=== PATIENT | female | born 1950 | race African-American/Black ===

== ENCOUNTER 2017-08-17 02:35 | Inpatient (IN) | payer OTHER ==
[~2017-08-17] VITALS: Ht 172.7 cm; Wt 73.7 kg
[~2017-08-17 02:35] MED LIST: DRAMAMINE50 M2 PO; FOLIC ACID1 M1 PO; MULTI FOR HER1 EAC2 PO; NEXIUM40 M1 PO; RESTASIS1 EACH OU; RHINOCORT ALL8.43 ML NASB; TREXALL5 MG PO; VASOTEC2.5 M1 PO; ZYRTEC10 M3 PO
[2017-08-17] MEDS ORDERED: DIMENHYDRINATE PO (06:44)
--- NOTE | 2017-08-17 09:56 | Operative Report ---
Operative/Inv Procedure Report Surgery Date: 08/17/17 Name of Procedure: Anterior cervical discectomy and fusion C4 5 with interdiscal cage and autologous bone graft and anterior plate fixation. Iliac crest tricortical structural bone graft harvest left crest. Reconstruction of donor site with Master graft. Use of fluoroscopy. Pre-Operative Diagnosis: Cervical disc C4 5 Post-Operative Diagnosis: Herniated cervical disc C4 5 and severe osteoporosis Estimated Blood Loss: less than 50ml Surgeon/Lead Machinist: Gary TESFAYE,Todd Carty M.D. Anesthesia: general endotracheal tube Operative/Procedure Note Note: After adequate general anesthesia was achieved the patient was placed in the supine position with the head turned left and the shoulders taped to the side. The right side of the neck and left anterior iliac crest were sterilely prepped and draped and incision was made on the right side of the neck carried sharply through the platysma. A blunt dissection was carried medial to the neurovascular bundle lateral to the visceral structures the esophagus was identified as was the trachea a bent needle was placed into the disc space fluoroscopy was used to identify surgical level. The deep retractors were gently deployed. A sharp annulotomy was created in the C4 5 disc space and discectomy was performed with the disc rongeurs and Kerrison. The dissection was carried through the annulus and posterior longitudinal ligament and a large fragment of herniated disc was present in the foramen and just medial to the foramen on the right side consistent with the patient's clinical symptoms. An incision was made over the left anterior iliac crest and a subperiosteal dissection was carried medial and lateral to the crest. Just E saw was used to collect a tricortical graft and the bone was found to be severely osteoporotic. Wound was irrigated packed with Master graft covered with Gelfoam and closed in layers with absorbable suture with nylon in the skin. The endplates were debrided with the high-speed bur to bleeding subchondral bone at the inferior aspect of C4 and the superior aspect of C5. The trial was used and an 18 mm cage was selected and packed with bone graft. Cages tamped into position under fluoroscopic guidance. An anterior plate was then applied 12 mm screws were found to be poor fixation and 14 mm screws were selected. The construct was checked in AP and lateral plane. The screws were locked 4. There is significant risk for loosening of hardware and a posterior procedure will be discussed with the patient. Findings: Severe osteoporosis
--- NOTE | 2017-08-17 10:49 | Patient Discharge Instructions ---
Acute Coronary Syndrome Inclusion Criteria At DC or during hospital stay patient has or had the following: ACS DIAGNOSIS No Discharge Core Measures Meds if any: Prescribed or Continued at Discharge Meds if any: NOT Prescribed or Continued at Discharge Congestive Heart Failure Inclusion Criteria At DC or during hospital stay patient has or had the following: CHF DIAGNOSIS No Discharge Core Measures Meds if any: Prescribed or Continued at Discharge Meds if any: NOT Prescribed or Continued at Discharge Cerebrovascular accident Inclusion Criteria At DC or during hospital stay patient has or had the following: CVA/TIA Diagnosis No Discharge Core Measures Meds if any: Prescribed or Continued at Discharge Meds if any: NOT Prescribed or Continued at Discharge Venous thromboembolism Inclusion Criteria VTE Diagnosis No VTE Type NONE VTE Confirmed by (Test) NONE Discharge Core Measures - Per Current guidelines, there needs to be overlap - treatment for the first 5 days of Warfarin therapy. - If discharged on Warfarin prior to 5 days of - overlap therapy, the patient will need to be - assessed for post discharge needs including - *Post discharge parental anticoagulation - *Warfarin and/or parental anticoagulation education - *Follow up date to check INR post discharge At least 5 days overlap therapy as Inpatient No Meds if any: Prescribed or Continued at Discharge Note: Overlap Therapy is Warfarin and Anticoagulant Meds if any: NOT Prescribed or Continued at Discharge
[2017-08-17] MEDS ORDERED: TYLENOL EXTRA500 M2 PO (10:54)
[2017-08-17] MEDS ORDERED: HYDROMORPHONE HC2 M1 PO (10:54)
[2017-08-17] MEDS ORDERED: VITAMIN D31000 UNI2 PO (10:54)
[2017-08-17] MEDS ORDERED: MULTIVITAMINS1 EAC9 PO (10:54)
[2017-08-17] MEDS ORDERED: MILK OF MA400 MG/52 PO (10:54)
[2017-08-17] MEDS ORDERED: OS-CAL 500+D31 EAC1 PO (10:54)
[2017-08-17] MEDS ORDERED: DULCOLAX10 M1 RC (10:54)
[2017-08-17] MEDS ORDERED: COLACE100 M1 PO (10:54)
--- NOTE | 2017-08-17 10:57 | RADIOLOGY REPORT ---
EXAMINATION: CR ABDOMEN/INTRAOPERATIVE FLUOROSCOPY CLINICAL INDICATION: ACD with C4-C5 fusion in OR. COMPARISON: MRI of the cervical spine dated 08/15/2017. TECHNIQUE/FINDINGS: Fluoroscopic equipment was dedicated to the operating room for the performance of an intraoperative procedure. Several (5) spot films were acquired and are archived in PACS. Please refer to operative notes for procedural detail. FLUOROSCOPY TIME: 0.3 minutes. IMPRESSION: Administrative dictation for intraoperative fluoroscopy and image archiving in PACS. Please refer to operative notes for details.
--- NOTE | 2017-08-17 11:01 | Cons- Medical ---
Jere Louise 08/17/17 1100: General Information and HPI Consulting Request Date of Consult: 08/17/17 Requested By: Todd Vega MD Reason for Consult: CO-Management of HTN Source of Information: patient, old records Exam Limitations: no limitations History of Present Illness: is a 67 yo lady with PMHx. of HTN, prediabetes, RA (On Methotrexate), GERD, former smoker who quit about 30 years ago, came in for elective cervical fusion surgery. Patient has the procedure today, after the procedure she was noted to be hypertensive so, medical team was consulted for management of HTN. Patient was seen at PACU, she denies any focal symptoms, she denies any pain, no chest pain, SOB, headache, SOB, fever, chills, abdominal pain. She was given 1 dose of hydralazine at OR, however at PACU her blood pressure was very well-controlled the highest was 146/65 mmHg, she didn't receive any blood pressure medication at PACU. Allergies/Medications Allergies: Coded Allergies: NSAIDS (Non-Steroidal Anti-Inflamma (swelling and rash 01/05/16) Penicillins (swelling and rash 01/05/16) aspirin (swelling and rash 01/05/16) codeine (SWELLING and rash 01/05/16) iodine (swelling 01/05/16) meperidine (From DEMEROL) (swelling and rash 01/05/16) Home Med List: Acetaminophen (Tylenol Extra Strength) 500 MG TABLET 1 TAB PO TID PRN TEMP>101 Bisacodyl (Dulcolax) 10 MG SUPP.RECT 1 SUP RC DAILY PRN CONSTIPATION Budesonide (Rhinocort Allergy) 8.43 ML SPRAY.PUMP 2 SPRAY NASB DAILY ALLERGIES (Reported) Calcium Carbonate/Vitamin D3 (Os-Pankaj 500+D3 Caplet) 500 MG-200 TABLET 1 TAB PO BID BONE HEALTH Cetirizine HCl (Zyrtec) 10 MG TABLET 1 TAB PO DAILY ALLERGIES (Reported) Cholecalciferol (Vitamin D3) 1,000 UNIT TABLET 1 TAB PO DAILY BONE HEALTH Cyclosporine (Restasis) 0.05 % DROPERETTE 1 GTT OU DAILY BOTH EYES (Reported) Dimenhydrinate (Dramamine) 50 MG TABLET 100 MG PO DAILY PRN dizziness ( Reported) Docusate Sodium (Colace) 100 MG CAPSULE 1 CAP PO BID PRN CONSTIPATION Enalapril Maleate (Vasotec) (Unknown Strength) TABLET 5 MG PO DAILY BP ( Reported) Esomeprazole (Nexium) 40 MG CAPSULE.DR 1 CAP PO DAILY GERD (Reported) Folic Acid 1 MG TABLET 1 TAB PO QSUN SUPPLEMENT (Reported) [GRAVOL] 100 PO NEEDED MOTION SICKNESS (Reported) Hydromorphone HCl 2 MG TABLET 1 MG PO Q3P PRN PAIN SCALE 1-3 (MILD) 1-2 TABS PO Q 4-6 HRS PRN PAIN Magnesium Hydroxide (Milk Of Magnesia) 400 MG/5 ML ORAL.SUSP 5 ML PO Q8P PRN CONSTIPATION Methotrexate Sodium (Trexall) 5 MG TABLET 20 MG PO QSAT ARTHRITIS (Reported) Multiple Vitamin (Multivitamins) 1 EACH TABLET 1 TAB PO DAILY GENERAL HEALTH Mv,Ca,Min/Iron Fum/FA/Vit K (Multi For Her Tablet) 18 MG IRON-600 MCG-80 MCG TABLET 1 TAB PO DAILY SUPPLEMENT (Reported) Review of Systems Review of Systems Constitutional: Reports: no symptoms. EENTM: Reports: no symptoms. Cardiovascular: Reports: no symptoms. Respiratory: Reports: no symptoms. GI: Reports: no symptoms. Genitourinary: Reports: no symptoms. Musculoskeletal: Reports: see HPI. Skin: Reports: no symptoms. Neurological/Psychological: Reports: no symptoms. Hematologic/Endocrine: Reports: no symptoms. All Other Systems: Reviewed and Negative Past History Medical History Neurological: dizziness EENT: allergies, rhinitis, sinusitis Cardiovascular: hypertension Respiratory: NONE Gastrointestinal: GERD Hepatic: NONE Renal: NONE Musculoskeletal: chronic back pain, disk herniation, degen joint disease, osteoarthritis, rheumatoid arthritis, sciatica, spinal stenosis, Lumbar disc herniation Psychiatric: NONE Endocrine: NONE Blood Disorders: NONE Cancer(s): NONE OFFICE ASSISTANT RECEPTIONIST/Reproductive: NONE Other Medical Hx: Nausea with General Anesthesia Surgical History Surgical History: s/p left shoulder arthroscopy 2016-Dr. Adan s/p right shoulder arthroscopy 2017- Dr. Dhaliwal Family History Relations & Conditions If Any: MOTHER (Diabetes MellitusCADRheumatic fever as a child). , Age 72; Cause : ASCVD (arteriosclerotic cardiovascular disease). FATHER (Diabetes MellitusCAD). , Age 71; Cause: ASCVD (arteriosclerotic cardiovascular disease). SISTER, , Age 76; Cause: Breast cancer. SISTER, ; Cause: Myocardial infarction. SISTER, ; Cause: Dementia. Psychosocial History Primary Language: [place]se Exam & Diagnostic Data Last 24 Hrs of Vital Signs/I&O Not documented Physical Exam General Appearance: well developed/nourished, no apparent distress, alert, awake , comfortable Head: atraumatic, normal appearance Respiratory: normal breath sounds, chest non-tender, no respiratory distress Cardiovascular: regular rate/rhythm, normal peripheral pulses Gastrointestinal: normal bowel sounds, soft, non-tender Extremities: normal inspection, no edema Neurologic/Psych: awake, alert, oriented x 3 Last 24 Hrs of Labs/Glen: No labs Assessment/Plan Assessment/Plan is a 67 yo lady with PMHx. of HTN, prediabetes, RA (On Methotrexate), GERD, former smoker who quit about 30 years ago, came in for elective cervical fusion surgery. Patient has the procedure today, after the procedure she was noted to be hypertensive so, medical team was consulted for management of HTN. Assessment: #Status post Anterior cervical discectomy and fusion C4 5 with interdiscal cage and autologous bone graft and anterior plate fixation. #History of hypertension #History of rheumatoid arthritis #History of prediabetes Plan: * Continue monitor her blood pressure with vitals every shift * Continue her home medication including her blood pressure medication (Except methotrexate) * Accu-Chek 3 times a day before meals and at bedtime * Check her labs tomorrow (CBC/BEP) * We'll continue to follow Problem List: 1. Rheumatoid arthritis 2. GERD (gastroesophageal reflux disease) 3. Status post laminectomy with spinal fusion Copies To: Neil Renae MD Consult Acknowledgment - Thank you for your consult request. Neil Renae MD 08/17/17 3977: Assessment/Plan Consult Acknowledgment - Thank you for your consult request. Attending MD Review Statement Attending Statement Attending Statement: examined this patient, discuss w/resident/PA/TIMBER APPRAISER, agreed w/resident/PA/TIMBER APPRAISER, discussed with family, reviewed EMR data (avail), amended to note Attending Assessment/Plan: The patient is a 67 yo female from [facility] with h/o HTN, pre-diabetes, allergic rhinitis, RA (on MTX), and GERD who presented for elective cervical fusion surgery today. We are called to evaluate post operatively. She had been noted to be hypertensive post op and was given Hydralazine x 1 dose in PACU with subsequent decrease in BP. She was drowsy at the time of my exam on the floor and appeared comfortable. No c/o dyspnea, chest pain, etc. Initially plan was to discharge tomorrow, however PA states that plan is to go back to OR on 08/19 for an additional procedure. Osteoporosis was found at the time of surgery. She did initially have some nausea and vomiting that resolved. Physical Exam: VS: T 98.5, P 68, BP 140/70, R 18, PO 96% HEENT: eyes- PERRLA, EOMI shruti- dry mucosa Neck: in soft collar Chest: diminished BS at bases, clear Cor: RRR nl S1, S2 w/o murm Abd: BS+, soft, NT, - HSM Ext: no edema Neuro: slightly drowsy, however arousable and answers questions, non-focal exam Impression/Plan: #S/P Anterior Cervical Discectomy with Fusion C4-5 (instrumental)- doing well post operatively w/o current symptoms. Drowsy due to pain meds, etc. Was informed by PA that due to finding of osteoporosis the patient will not be discharged tomorrow as planned, however will remain in hospital with additional procedure planned for 08/19. Plan: Post op care as per surgery/orthopedics. #Essential HTN- BP good at present. She is on Vasotec as OP (non-formulary) and equivalent dose of lisinopril will be prescribed. Plan: Will use Lisinopril and adjust dose as needed. #History of RA- on MTX (on hold). Plan: Continue to hold MTX. #GERD- on Nexium as OP. Plan: Substitute Omeprazole while in hospital. #Allergic Rhinitis- on Zyrtec and Budesonide Nasal [place] as OP. Plan: Substitute Claritin and Flonase while in hospital. #?Osteoporosis- mentioned by PA. Note patient is post menopausal female with RA. RA is independent risk factor for osteoporosis unrelated to steroid therapy. Plan: Would suggest OP DEXA/FRAX calculation and evaluation for osteoporosis treatment as OP. Continue Ca/Vit D.
[2017-08-17 12:42] VITALS: BP 144/70
--- NOTE | 2017-08-17 13:39 | PN- Neurosurgical ---
Subjective Subjective: pt in bed, sleepy, minimal pain at 1/10. Denies paresthesias. Had some Nausea and vomiting which has no subsided and pt is confortable. Voiding. No cp/sob/olson. Objective Vital Signs and I&Os Vital Signs Date Time Temp Pulse Resp B/P B/P Pulse O2 O2 Flow FiO2 Mean Ox Delivery Rate 08/17 1242 97.8 58 20 144/70 96 Room Air Intake & Output 08/17 1600 08/17 0800 08/17 0000 08/16 1600 08/16 0800 08/16 0000 Intake Total Output Total Balance Patient 150 lb 155 lb Weight Weight Reported by Patient Measurement Method Physical Exam: gen- NAD, soft collar in place resp- clear cardiac- RRR abd- soft, NT ext- 2+ radial pulse bilaterally, distal sensory and motor function intact bilaterally. calfs soft, nontender bilaterally Assessment/Plan Assessment/Plan 67yo F SP ACD fusion C4-5 with bone graft harvested from left iliac crest POD0. stable but had nausea and vomiting immidiately post-op anti-emetics as needed sheela-op abx- Clinda Pain mangement PT- soft c-spine collar DC IVF when tolerating PO, then reg diet dvt ppx- ALPS and early ambulation reg home meds except hold Methotrexate Core Measures Venous Thromboembolism VTE Risk Factors Surgery No Mechanical VTE Prophylaxis d/t N/A MechProphylax Ordered No VTE Pharm Prophylaxis d/t Surgical Contraindication
[2017-08-17 15:21] VITALS: BP 140/75
[2017-08-17 16:19] VITALS: BP 160/86
[2017-08-17 22:13] VITALS: BP 140/70
[2017-08-18 02:00] VITALS: BP 132/66
[2017-08-18 07:39] VITALS: BP 138/74
--- NOTE | 2017-08-18 08:25 | PN- Neurosurgical ---
Subjective Subjective: pt comfortable. mild pain in neck and pelvis at graft site. no ue/le neurologic symptoms. able to swallow ok, tolerating breakfast at time of my evaluation. Objective Vital Signs and I&Os Vital Signs Date Time Temp Pulse Resp B/P B/P Pulse O2 O2 Flow FiO2 Mean Ox Delivery Rate 08/18 0739 98.1 65 20 138/74 96 Room Air 08/18 0200 98.9 69 18 132/66 95 Room Air 08/17 2213 98.5 68 140/70 96 08/17 1825 Room Air Room Air 08/17 1619 62 160/86 08/17 1521 97.5 72 20 140/75 96 08/17 1418 97.8 58 20 144/70 08/17 1242 97.8 58 20 144/70 96 Room Air Intake & Output 08/18 1600 08/18 0800 08/18 0000 08/17 1600 08/17 0800 08/17 0000 Intake Total 1100 Output Total 250 1000 Balance -250 100 Intake, IV 800 Intake, Oral 300 Output, Urine 250 1000 Patient 162 lb 150 lb Weight Weight Reported by Patient Measurement Method Physical Exam: wdwn, aox3, nad, comfortable. Neck:soft collar in place, dressing cdi no resp distress BUE/LE NVI w sensation and motor grossly intact, no deficits noted. L ant/lateral pelvis graft site:dressing cdi. Assessment/Plan Assessment/Plan 67yo F POD1 SP ACD fusion C4-5 with bone graft harvested from left iliac crest sheela-op abx- Clinda Pain mangement soft c-spine collar reg diet dvt ppx- ALPS and early ambulation oob tentative plan for posterior approach tomorrow, npo p mn, will confirm w Dr Vega. Core Measures Venous Thromboembolism VTE Risk Factors Surgery No Mechanical VTE Prophylaxis d/t N/A MechProphylax Ordered No VTE Pharm Prophylaxis d/t Surgical Contraindication
--- NOTE | 2017-08-18 08:36 | PN- Medicine Consult ---
Assessment/PlanMedical Consult Assessment/Plan Assessment: is a 67 yo lady with PMHx. of HTN, prediabetes, RA (On Methotrexate), GERD, former smoker who quit about 30 years ago, came in for elective cervical fusion surgery. Patient had the procedure yesterday, after the procedure she was noted to be hypertensive so, medical team was consulted for management of HTN. Plan: is a 67 yo lady with PMHx. of HTN, prediabetes, RA (On Methotrexate), GERD, former smoker who quit about 30 years ago, came in for elective cervical fusion surgery. Patient has the procedure today, after the procedure she was noted to be hypertensive so, medical team was consulted for management of HTN. Assessment: #Status post Anterior cervical discectomy and fusion C4 5 with interdiscal cage and autologous bone graft and anterior plate fixation. #History of hypertension #History of rheumatoid arthritis #History of prediabetes Plan: * BP is well controlled on Lisinopril * Continue other home medication including her blood pressure medication (Except methotrexate) * Soft C-spine collar * PT * Accu-Chek 3 times a day before meals and at bedtime * Check her labs tomorrow (CBC/BEP) * We'll continue to follow * Order some Lozenges as she feels sore throat which could be related to intubation, consider rapid flu swap if symptoms persist Going to OR tomorrow for posterior approach, her RCRI is 0.4% , FRAX score for hip fracture is 4.9% (With PMD assume to be -2.5) Problem List: 1. Status post laminectomy with spinal fusion Subjective Subjective: Seen and examined, no complaint except for pain in the left lower quadrant related to the procedure No events overnight Vitals stable She is going to OR tomorrow Review of Systems Constitutional: Reports: no symptoms. EENTM: Reports: no symptoms. Cardiovascular: Reports: no symptoms. Respiratory: Reports: no symptoms. Gastrointestinal: Reports: no symptoms. Genitourinary: Reports: no symptoms. Musculoskeletal: Reports: no symptoms. Skin: Reports: no symptoms. Neurological/Psychological: Reports: no symptoms. Hematologic/Endocrine: Reports: no symptoms. Objective Last 24 Hrs of Vital Signs/I&O Vital Signs Date Time Temp Pulse Resp B/P B/P Pulse O2 O2 Flow FiO2 Mean Ox Delivery Rate 04/05 1022 98.1 65 20 138/74 04/ 0739 98.1 65 20 138/74 96 Room Air 08/18 0200 98.9 69 18 132/66 95 Room Air 08/17 2213 98.5 68 140/70 96 08/17 1825 Room Air Room Air 08/17 1619 62 160/86 08/17 1521 97.5 72 20 140/75 96 08/17 1418 97.8 58 20 144/70 08/17 1242 97.8 58 20 144/70 96 Room Air Intake & Output 08/18 1600 08/18 0800 08/18 0000 Intake Total 1100 Output Total 250 1000 Balance -250 100 Intake, IV 800 Intake, Oral 300 Output, Urine 250 1000 Patient 162 lb Weight Physical Exam General Appearance: well developed/nourished, no apparent distress, alert, awake , comfortable Head: atraumatic Neck: normal inspection, supple Cardiovascular: regular rate/rhythm, normal peripheral pulses Respiratory: normal breath sounds, chest non-tender, no respiratory distress Extremities: normal inspection, normal capillary refill, no edema Current Medications: Current Medications Sig/Ness Start time Last Medication Dose Route Stop Time Status Admin Acetaminophen 1,000 MG Q6P PRN 08/17 1045 AC 08/18 N/A 1 UNIT IV 0028 Acetaminophen 650 MG Q4P PRN 08/17 1045 AC PO Bisacodyl 10 MG DAILY NEEDED PRN 08/17 1045 AC NM Calcium 600 MG BID 08/17 2200 AC 08/18 PO 1022 Cholecalciferol 1,000 IU DAILY 08/18 1000 AC 08/18 PO 1022 Clindamycin 600 MG IQ8 08/17 1600 DC 08/18 Dextrose/Water 50 ML IV 08/18 0829 1021 Clindamycin 600 MG ONCE 08/17 0000 DC Dextrose/Water 50 ML IV 08/17 2359 Cyclosporine 1 GTT DAILY 08/18 1000 AC 08/18 OPH 1022 Docusate Sodium 100 MG BID 08/17 2200 AC 08/18 PO 1022 Fluticasone 2 SPRAY DAILY 08/18 1000 AC 08/18 Propionate HERBIE 1022 Folic Acid 1 MG QSUN 08/21 0700 AC PO Hydromorphone HCl 1 MG Q3P PRN 08/17 1045 AC PO Hydromorphone HCl 2 MG Q3P PRN 08/17 1045 AC PO Lactated Ringer's 1,000 ML Q10H 08/17 1045 DC 08/17 IV 2204 Lisinopril 10 MG DAILY 08/17 1033 AC 08/18 PO 1022 Loratadine 10 MG DAILY 08/18 1000 AC 08/18 PO 1022 Magnesium Hydroxide 30 ML Q8P PRN 08/17 1045 AC PO Meclizine HCl 12.5 MG ONCE PRN 08/17 1045 AC PO Multivitamins 1 TAB DAILY 08/18 1000 AC 08/18 PO 1022 Omeprazole 40 MG DAILY AC 08/18 0700 AC 08/18 PO 0629 Ondansetron HCl 4 MG Q6P PRN 08/17 1045 AC 08/17 IV 1240 Trimethobenzamide HCl 200 MG Q6P PRN 08/17 1045 AC 08/17 IM 1552 Results Last 24 Hrs Lab/Glen Results: No labs
[2017-08-18 14:36] VITALS: BP 130/70
--- NOTE | 2017-08-18 16:01 | PN- Orthopedic ---
Subjective Subjective: Patient feeling well. Minimal pain. No pain meds needed. Nausea subsided. Henri. po. +flatus. Voiding without difficulty. Ambulating in barraza without assist. Review of Systems: Remarkable for the above complaints. Objective Vital Signs and I&Os Vital Signs Date Time Temp Pulse Resp B/P B/P Pulse O2 O2 Flow FiO2 Mean Ox Delivery Rate 08/18 1436 98.1 74 18 130/70 97 Room Air 08/18 1022 98.1 65 20 138/74 08/18 0739 98.1 65 20 138/74 96 Room Air 08/18 0200 98.9 69 18 132/66 95 Room Air 08/17 2213 98.5 68 140/70 96 08/17 1825 Room Air Room Air 08/17 1619 62 160/86 Intake & Output 08/18 1600 08/18 0800 08/18 0000 08/17 1600 08/17 0800 08/17 0000 Intake Total 1100 Output Total 250 1000 Balance -250 100 Intake, IV 800 Intake, Oral 300 Output, Urine 250 1000 Patient 162 lb 150 lb Weight Weight Reported by Patient Measurement Method Physical Exam General Appearance: well developed/nourished, no apparent distress, alert, awake , comfortable Neck: Incisions C/D/I. Dressings changed., + min. swelling around incision. + ecchymosis Respiratory: normal breath sounds, no respiratory distress Cardiovascular: regular rate/rhythm Abdomen: normal bowel sounds, soft, non-tender Back: Graft site incision C/D/I. Dressing changed. Neurologic/Psychiatric: Neurovascularly intact with no new or worsening gross motor or sensory loss. Skin: intact, normal color, warm/dry Assessment/Plan Assessment/Plan Assessment: S/p ACDF C4-5 with severe osteoporosis Plan: Continue pain meds prn Ice prn pain. NPO after MN. Start IVF after Midnight Plan to go for PCDF in am. for stabilization. Will F/U in am Problem List: 1. Hypertension 2. Sinusitis 3. GERD (gastroesophageal reflux disease) 4. Rheumatoid arthritis 5. Rhinitis Core Measures Venous Thromboembolism VTE Risk Factors Surgery No Mechanical VTE Prophylaxis d/t Early Ambulation No VTE Pharm Prophylaxis d/t Surgical Contraindication Attending MD Review Statement Attending Statement Attending MD Statement: examined this patient, discuss w/resident/PA/BIOFUELS PLANT OPERATIONS ENGINEER, agreed w/resident/PA/BIOFUELS PLANT OPERATIONS ENGINEER
[2017-08-18 21:58] VITALS: BP 160/72
[2017-08-19 04:50] VITALS: BP 144/84
[2017-08-19 09:36] VITALS: BP 128/84
== END 2017-08-19 13:51 | DRG 473 ==
LOC: SDA 02:35 → ENRESERV 10:51 → ENTRNSPT 11:45 → EDTRNSPTSTS 12:09 → 2NA 12:20 → CMPTRNSPT 12:23 → ENPENDDIS 08-19 09:11 → ENTRNSPT 08-19 13:40 → EDTRNSPTSTS 08-19 13:47 → 2NA 08-19 13:51 → CMPTRNSPT 08-19 14:02
PROC: 0RG10A0 Fusion of Cervical Vertebral Joint with Interbody Fusion Device, Anterior Approach, Anterior Column, Open Approach (ICD-10-PCS; principal; 2017-08-17)
PROC: 0RT30ZZ Resection of Cervical Vertebral Disc, Open Approach (ICD-10-PCS; principal; 2017-08-17)
PROC: 0QB30ZZ Excision of Left Pelvic Bone, Open Approach (ICD-10-PCS; principal; 2017-08-17)
DX: M50.121 Cervical disc disorder at C4-C5 level with radiculopathy (principal); I10 Essential (primary) hypertension; R73.03 Prediabetes; M06.9 Rheumatoid arthritis, unspecified; K21.9 Gastro-esophageal reflux disease without esophagitis; Z87.891 Personal history of nicotine dependence; Z88.6 Allergy status to analgesic agent; Z88.5 Allergy status to narcotic agent; Z88.0 Allergy status to penicillin; M54.30 Sciatica, unspecified side; M51.26 Other intervertebral disc displacement, lumbar region; J30.9 Allergic rhinitis, unspecified; M81.0 Age-related osteoporosis without current pathological fracture
CPT/HCPCS: 2NASP; 36415; 72040; 88304; 97116-GO; 97161-GP; 97530-GO; J0131; J2270; J2405; J3250; J3490; J7120

== ENCOUNTER 2017-08-22 01:27 | Inpatient (IN) | payer OTHER ==
[~2017-08-22] VITALS: Ht 172.7 cm; Wt 69.4 kg
[~2017-08-22 01:27] MED LIST changes: +COLACE100 M1 PO; +DIMENHYDRINATE PO; +DULCOLAX10 M1 RC; +HYDROMORPHONE HC2 M1 PO; +MILK OF MA400 MG/52 PO; +MULTIVITAMINS1 EAC9 PO; +OS-CAL 500+D31 EAC1 PO; +TYLENOL EXTRA500 M2 PO; +VITAMIN D31000 UNI2 PO
--- NOTE | 2017-08-22 13:33 | Operative Report ---
Operative/Inv Procedure Report Surgery Date: 08/22/17 Name of Procedure: Posterior cervical inspection of fusion C4 5. Laminectomies decompression C4 5 bilaterally. Instrumented fusion with 18-gauge wire C4 5. Lateral mass fusion autologous iliac crest C4 5. Harvesting of iliac crest right posterior. Destruction of harvest site with Master graft. Placement of Draper tongs removal of Draper tongs. Use of fluoroscopy. Pre-Operative Diagnosis: Unstable spine osteoporosis. Post-Operative Diagnosis: Severe osteoporosis. Estimated Blood Loss: less than 50ml Surgeon/Automotive Airconditioning Mechanic: Gary TESFAYE,Todd ACUNA Anesthesia: general endotracheal tube Operative/Procedure Note Note: After adequate general anesthesia was achieved the patient was placed in Draper tongs and log rolled onto the operating table. She was placed in the prone position. The back of the neck and right posterior iliac crest were sterilely prepped and draped. In the log rolling and positioning maintaining neutral position of the cervical spine. An incision was made in the midline of the posterior cervical spine and carried down over the dorsal elements with electrocautery. The C5 vertebral was easily identified and the towel clip was placed in the spinous process of C4. Fluoroscopy was obtained to identify surgical level. After placement of the 18-gauge wire was attempted at C4 the spinous process demonstrated severe osteoporosis and a decision was made to perform a bone graft fusion. An incision was made over the right posterior iliac crest the dissection was carried to the level of the crest and the osteotome was used to create an entrance portal and the curettes were used to collect morcellized bone. The wound was irrigated the defect was packed with Master graft and closed in layers with double suture with darshan in the skin. The curettes and Kerrisons were used to perform laminectomies at C4 and C5 bilaterally as was the high-speed bur. The bone was extremely soft. After the decompression the wound was copiously irrigated the lateral masses were decorticated with the high-speed bur and the facets were decorticated with the pencil point bur. Bone wax was packed within the facet joints and over the dorsal elements laterally well away from the laminotomy sites. The wound was copiously irrigated a closure of the cervical fascia and subcutaneous tissue was performed with absorbable suture the skin was closed with darshan. After placement sterile dressings the patient was log rolled off the operating table in the Draper tongs were removed patient was in a cervical collar log roll.
--- NOTE | 2017-08-22 14:13 | Patient Discharge Instructions ---
Discharge Instructions General Discharge Information Special Instructions: Do not start methotrexate until 2 weeks post operatively. discussed with Beatriz Bates PA-C Acute Coronary Syndrome Inclusion Criteria At DC or during hospital stay patient has or had the following: ACS DIAGNOSIS No Discharge Core Measures Meds if any: Prescribed or Continued at Discharge Meds if any: NOT Prescribed or Continued at Discharge Congestive Heart Failure Inclusion Criteria At DC or during hospital stay patient has or had the following: CHF DIAGNOSIS No Discharge Core Measures Meds if any: Prescribed or Continued at Discharge Meds if any: NOT Prescribed or Continued at Discharge Cerebrovascular accident Inclusion Criteria At DC or during hospital stay patient has or had the following: CVA/TIA Diagnosis No Discharge Core Measures Meds if any: Prescribed or Continued at Discharge Meds if any: NOT Prescribed or Continued at Discharge Venous thromboembolism Inclusion Criteria VTE Diagnosis No VTE Type NONE VTE Confirmed by (Test) NONE Discharge Core Measures - Per Current guidelines, there needs to be overlap - treatment for the first 5 days of Warfarin therapy. - If discharged on Warfarin prior to 5 days of - overlap therapy, the patient will need to be - assessed for post discharge needs including - *Post discharge parental anticoagulation - *Warfarin and/or parental anticoagulation education - *Follow up date to check INR post discharge At least 5 days overlap therapy as Inpatient No Meds if any: Prescribed or Continued at Discharge Note: Overlap Therapy is Warfarin and Anticoagulant Meds if any: NOT Prescribed or Continued at Discharge
[2017-08-22] MEDS ORDERED: HYDROMORPHONE HC2 M1 PO (14:18)
[2017-08-22] MEDS ORDERED: TYLENOL EXTRA500 M2 PO (14:18)
--- NOTE | 2017-08-22 16:20 | PN- Orthopedic ---
Subjective Subjective: Postop check: Patient comfortable, complains of mild sore throat and mild salivation. She is able to swallow. No stridor. Pain is controlled Objective Vital Signs and I&Os Intake & Output 08/22 1600 08/22 0000 08/21 1600 08/21 0000 Intake Total Output Total Balance Patient 153 lb Weight Vital signs stable, afebrile Physical Exam: Well-developed well-nourished no apparent distress. HEENT: Atraumatic, extraocular motion intact Neck: Supple, trachea midline, soft cervical collar in place, dressing clean dry and intact Respiratory: No respiratory distress Extremities: No edema, no calf pain Neuro: Alert and oriented x3. bilateral upper extremities and lower extremities are neurovascularly intact with sensation and motor grossly intact Psych: Mood affect normal, normal memory normal judgment. Skin: Warm and dry, no rash on exposed skin Assessment/Plan Assessment/Plan Postop day #0 status post C4 5 posterior laminectomy and fusion secondary to osteoporosis and unstable C-spine after anterior cervical dissection and fusion. Orthopedically stable. Soft collar for comfort. Perioperative antibiotics. Pain medication as needed. Out of bed IV fluids Regular diet ALPS for DVT prophylaxis, early ambulation Regular home meds Dressing change postop day 2 Core Measures Venous Thromboembolism VTE Risk Factors Age>40 No Mechanical VTE Prophylaxis d/t N/A MechProphylax Ordered No VTE Pharm Prophylaxis d/t Other (surgeon preference)
--- NOTE | 2017-08-22 16:48 | RADIOLOGY REPORT ---
EXAMINATION: CR CERVICAL SPINE/INTRAOPERATIVE FLUOROSCOPY CLINICAL INDICATION: Inspection status post C4-C5 fusion with iliac crest bone. COMPARISON: Prior study from 08/17/2017. TECHNIQUE/FINDINGS: Fluoroscopic equipment was dedicated to the operating room for the performance of an intraoperative procedure. Single spot film was acquired and is archived in PACS, detailing anterior cervical fusion at C5-C4-C5 with intervening disc spacer. Surgical instrument is seen projected over the C4 spinous process. Please refer to operative notes for procedural detail. FLUOROSCOPY TIME: 0.1 minutes. IMPRESSION: Administrative dictation for intraoperative fluoroscopy and image archiving in PACS. Please refer to operative notes for details.
--- NOTE | 2017-08-22 18:16 | PN- Att Addend ---
Attending Addendum Attending Brief Note S: The patient was seen in PACU on 08/22/17 post operatively. At that time she was comfortable without complaints of dyspnea, chest pain, etc. Neck discomfort was controlled. Denied cough or other symptoms. VS: T 98.6, P 80, R 18, BP 162/86, PO 100% on 3L HEENT: eyes- PERRLA, EOMI shruti- moist mucosa Neck: in soft collar Chest: clear Cor: RRR nl S1, S2 w/o murm Abd: BS+, soft, NT, - HSM Ext: no edema, pulses 2+ Neuro: alert & oriented x 3, non-focal exam, gait not tested Labs/Tests- stable on monitor in PACU Impression/Plan: #Cervical Pain- the patient is s/p initial procedure last week, returned today for posterior decompression, laminectomy, instrumental fusion and iliac graft C4 -5. Did well with procedure and appears comfortable in PACU. Plan: Post op surgical care as per orthopedics. #Essential Hypertension- BP slightly elevated. Had been seen for medical follow- up last week post initial procedure and had been stable. Patient takes Vasotec as OP. Plan: Will substitute Lisinopril while inpatient and follow BP. #Rheumatoid Arthritis- normally takes methotrexate. Plan: Methotrexate on hold for procedure. Restart when able post op. #GERD- has been stable. Normally takes Nexium as OP. Plan: Substitute Omeprazole while inpatient. #Osteoporosis- by report. Plan: OP evaluation/DEXA suggested. Cholecalciferol. #Allergic Rhinitis- normally takes Zyrtec and Budesonide Inhaler. Plan: Continue prn. Will follow.
[2017-08-22 18:48] VITALS: BP 150/80
[2017-08-22 22:20] VITALS: BP 158/70
[2017-08-23 06:34] VITALS: BP 167/78
--- NOTE | 2017-08-23 07:48 | PN- Orthopedic ---
Subjective Subjective: POD #1 s/p posterior cervical decompression. Resting comfortably in bed. No dysphagia to solids or liquids. Ambulating with assistance. Slight soreness to neck. Objective Vital Signs and I&Os Vital Signs Date Time Temp Pulse Resp B/P B/P Pulse O2 O2 Flow FiO2 Mean Ox Delivery Rate 08/23 0634 98.3 67 18 167/78 9 08/22 2220 98.6 101 20 158/70 95 08/22 1848 150/80 08/22 1837 Room Air 08/22 1755 98.3 93 18 97 Room Air Intake & Output 08/23 0800 08/23 0000 08/22 1600 08/22 0808/22 0000 08/21 1600 Intake Total 1340 Output Total 700 Balance 640 Intake, IV 500 Intake, Oral 840 Output, Urine 700 Patient 153 lb 153 lb Weight Physical Exam: Gen: AAOx3 in NAD Cor: S1+S2+ Lungs: CTA grace Abd: soft, NT, ND, +BS x4 Ext: no edema or calf tenderness to grace lower extremities. Strength 5/5 throughout grace upper extremities. Palpable radial pulses. Sensation grossly intact. Dressing to anterior cervical area C/D/I. Current Medications: Current Medications Sig/Ness Start time Last Medication Dose Route Stop Time Status Admin Acetaminophen 1,000 MG Q6P PRN 08/22 1415 AC IV Acetaminophen 650 MG Q4P PRN 08/22 1400 AC PO Bisacodyl 10 MG DAILY NEEDED PRN 08/22 1400 AC DE Calcium 600 MG BID 08/22 2200 AC PO Cholecalciferol 1,000 IU DAILY 08/23 1000 AC PO Clindamycin 600 MG Q8H 08/23 0445 AC 08/23 Dextrose/Water 50 ML IV 08/23 1314 0439 Clindamycin 600 MG IQ8 08/22 1600 DC 08/22 Dextrose/Water 50 ML IV 08/23 0829 2040 Clindamycin 600 MG Q8H 08/22 0445 DC Dextrose/Water 50 ML IV 08/22 1314 Cyclosporine 1 GTT DAILY 08/23 1000 AC OPH Diazepam 5 MG Q8P PRN 08/22 1400 AC PO Docusate Sodium 100 MG BID 08/22 2200 AC PO Fentanyl Citrate 100 MCG .STK-MED ONE 08/22 1348 DC IM 08/22 1349 Fentanyl Citrate 250 MCG .STK-MED ONE 08/22 1131 DC IM 08/22 1132 Fluticasone 2 SPRAY DAILY 08/23 1000 AC Propionate HERBIE Folic Acid 1 MG QSUN 08/28 0700 AC PO Hydromorphone HCl 2 MG Q3P PRN 08/22 1415 AC PO Hydromorphone HCl 4 MG Q3P PRN 08/22 1415 AC PO Lactated Ringer's 1,000 ML Q10H 08/22 1415 AC 08/23 IV 0045 Lisinopril 10 MG DAILY 08/23 1000 AC PO Loratadine 10 MG DAILY 08/23 1000 AC PO Magnesium Hydroxide 30 ML Q8P PRN 08/22 1415 AC PO Meclizine HCl 12.5 MG TID PRN 08/22 1400 AC PO Midazolam HCl 2 MG .STK-MED ONE 08/22 113 DC IM 08/22 113 Morphine Sulfate 4 MG .STK-MED ONE 08/22 113 DC IM 08/22 1133 Multivitamins 1 TAB DAILY 08/23 1000 AC PO Omeprazole 40 MG DAILY AC 08/23 0700 AC 08/23 PO 0647 Ondansetron HCl 4 MG Q6P PRN 08/22 1400 AC IV Trimethobenzamide HCl 200 MG Q6P PRN 08/22 1400 AC IM Assessment/Plan Assessment/Plan A: POD #1 s/p PSF; AVSS Plan: Regular diet. OOB and ambulate. D/C home likely today. Core Measures Venous Thromboembolism VTE Risk Factors Age>40 No Mechanical VTE Prophylaxis d/t N/A MechProphylax Ordered No VTE Pharm Prophylaxis d/t Other (surgeon preference)
--- NOTE | 2017-08-23 07:48 | Surg Short-stay <48hrs Dis Sum ---
Visit Information Visit Dates Admission Date: 08/22/17 Discharge Date: 08/23/17 Surgical Short Stay DC Summary Admission Diagnosis: unstable spinal osteoporosis Final Diagnosis: osteoporosis Procedure(s): Posterior cervical inspection of fusion C4 5. Laminectomies decompression C4 5 bilaterally. Instrumented fusion with 18-gauge wire C4 5. Lateral mass fusion autologous iliac crest C4 5. Harvesting of iliac crest right posterior. Destruction of harvest site with Master graft. Placement of Draper tongs removal of Draper tongs. Use of fluoroscopy. Summary/Significant Findings: Patient was admitted on 08/22/17 and underwent an elective posterior cervical decompression with Dr. Vega. She did well intraoperatively, and was transferred to the surgical floor in stable condition. Her diet was advanced and she was able to void spontaneously. On POD #1, her pain was well controlled and she was discharged home. She will follow up with Dr. Vega as scheduled. Condition at Discharge: stable Discharge Disposition: home or self care Discharge instructions provided to patient/family: Yes Post discharge follow-up plan: Dr. Vega as scheduled
[2017-08-23 08:00] VITALS: BP 170/88
--- NOTE | 2017-08-23 11:06 | PN- Att Addend ---
Attending Addendum Attending Brief Note S: The patient c/o some GERD symptoms today. Otherwise doing well. No c/o cough, nausea, etc. O: VS: Vital Signs Date Time Temp Pulse Resp B/P B/P Pulse O2 O2 Flow FiO2 Mean Ox Delivery Rate 08/23 1036 77 170/88 08/23 0634 98.3 67 18 167/78 9 08/22 2220 98.6 101 20 158/70 95 08/22 1848 150/80 08/22 1837 Room Air 08/22 1755 98.3 93 18 97 Room Air Intake & Output 08/23 1600 08/23 0800 08/23 0000 Intake Total 1260 1340 Output Total 7000 700 Balance -5740 640 Intake, IV 800 500 Intake, Oral 460 840 Output, Urine 7000 700 Patient 153 lb Weight Current Medications Sig/Ness Start time Last Medication Dose Route Stop Time Status Admin Acetaminophen 1,000 MG Q6P PRN 08/22 1415 AC IV Acetaminophen 650 MG Q4P PRN 08/22 1400 AC PO Bisacodyl 10 MG DAILY NEEDED PRN 08/22 1400 AC SD Calcium 600 MG BID 08/22 2200 AC 08/23 PO 1034 Cholecalciferol 1,000 IU DAILY 08/23 1000 AC 08/23 PO 1038 Clindamycin 600 MG Q8H 08/23 0445 AC 08/23 Dextrose/Water 50 ML IV 08/23 1314 0439 Clindamycin 600 MG IQ8 08/22 1600 DC 08/22 Dextrose/Water 50 ML IV 08/23 0829 2040 Clindamycin 600 MG Q8H 08/22 0445 DC Dextrose/Water 50 ML IV 08/22 1314 Cyclosporine 1 GTT DAILY 08/23 1000 AC 08/23 OPH 1037 Diazepam 5 MG Q8P PRN 08/22 1400 AC PO Docusate Sodium 100 MG BID 08/22 2200 AC 08/23 PO 1035 Fentanyl Citrate 100 MCG .STK-MED ONE 08/22 1348 DC IM 08/22 1349 Fentanyl Citrate 250 MCG .STK-MED ONE 08/22 1131 DC IM 08/22 1132 Fluticasone 2 SPRAY DAILY 08/23 1000 AC 08/23 Propionate HERBIE 1036 Folic Acid 1 MG QSUN 08/28 0700 AC PO Hydromorphone HCl 2 MG Q3P PRN 08/22 1415 AC PO Hydromorphone HCl 4 MG Q3P PRN 08/22 1415 AC PO Lactated Ringer's 1,000 ML Q10H 08/22 1415 DC 08/23 IV 0045 Lisinopril 10 MG DAILY 08/23 1000 AC 08/23 PO 1036 Loratadine 10 MG DAILY 08/23 1000 AC 08/23 PO 1034 Magnesium Hydroxide 30 ML Q8P PRN 08/22 1415 AC PO Meclizine HCl 12.5 MG TID PRN 08/22 1400 AC PO Midazolam HCl 2 MG .STK-MED ONE 08/22 1132 DC IM 08/22 1133 Morphine Sulfate 4 MG .STK-MED ONE 08/22 1132 DC IM 08/22 1133 Multivitamins 1 TAB DAILY 08/23 1000 AC 08/23 PO 1035 Omeprazole 40 MG BID 08/23 2200 UNVr PO Omeprazole 40 MG DAILY AC 08/23 0700 DC 08/23 PO 0647 Ondansetron HCl 4 MG Q6P PRN 08/22 1400 AC IV Simethicone 40 MG 4 TIMES/DAY PRN 08/23 1100 UNVr PO Trimethobenzamide HCl 200 MG Q6P PRN 08/22 1400 AC IM Chest: clear Cor: RRR nl S1, S2 Abd: BS+, soft, NT Ext: no edema Impression/Plan: #GERD- increased symptoms. Patient normally on Nexium and Divol at home. Plan: Increase omeprazole to bid, add mylanta qid prn. #Essential HTN- BP sl increased. Plan: Add Lisinopril (substituting for Vasotec she takes at home). #Rheumatoid Arthritis- MTX on hold. Plan: Continue to hold MTX.
[2017-08-23 13:25] VITALS: BP 150/70
--- NOTE | 2017-08-23 16:44 | PN- Orthopedic ---
Subjective Subjective: Patient c/o expected postop incisional pain. No preop pain. Henri. po. Less secretions and dysphagia. No hoarseness. Ambulating with walker. No fever/ chills. +flatus and voiding without difficulty. Review of Systems: Remarkable for the above complaints. Objective Vital Signs and I&Os Vital Signs Date Time Temp Pulse Resp B/P B/P Pulse O2 O2 Flow FiO2 Mean Ox Delivery Rate 08/23 1325 98.2 78 20 150/70 96 Room Air 08/23 1036 77 170/88 08/23 0800 98.7 77 170/88 08/23 0634 98.3 67 18 167/78 9 08/22 2220 98.6 101 20 158/70 95 08/22 1848 150/80 08/22 1837 Room Air 08/22 1755 98.3 93 18 97 Room Air Intake & Output 08/23 1600 08/23 0800 08/23 0000 08/22 1600 08/22 0800 08/22 0000 Intake Total 1260 1340 Output Total 7000 700 Balance -5740 640 Intake, IV 800 500 Intake, Oral 460 840 Output, Urine 7000 700 Patient 153 lb 153 lb Weight Physical Exam General Appearance: well developed/nourished, no apparent distress, alert, awake Neck: Incisions x 4 C/D/I. Dressings changed. Respiratory: normal breath sounds, no respiratory distress Cardiovascular: regular rate/rhythm Abdomen: normal bowel sounds, soft, non-tender Neurologic/Psychiatric: Neurovascularly stable with no new or worsening gross motor or sensory loss. Skin: intact, normal color, warm/dry Current Medications: Current Medications Sig/Ness Start time Last Medication Dose Route Stop Time Status Admin Acetaminophen 1,000 MG Q6P PRN 08/22 1415 DCD IV Acetaminophen 650 MG Q4P PRN 08/22 1400 DCD PO Bisacodyl 10 MG DAILY NEEDED PRN 08/22 1400 DCD OH Calcium 600 MG BID 08/22 2200 DCD 08/23 PO 1034 Cholecalciferol 1,000 IU DAILY 08/23 1000 DCD 08/23 PO 1038 Clindamycin 600 MG Q8H 08/23 0445 DC 08/23 Dextrose/Water 50 ML IV 08/23 1314 1244 Clindamycin 600 MG IQ8 08/22 1600 DC 08/22 Dextrose/Water 50 ML IV 08/23 0829 2040 Cyclosporine 1 GTT DAILY 08/23 1000 DCD 08/23 OPH 1037 Diazepam 5 MG Q8P PRN 08/22 1400 DCD PO Docusate Sodium 100 MG BID 08/22 2200 DCD 08/23 PO 1035 Fluticasone 2 SPRAY DAILY 08/23 1000 DCD 08/23 Propionate HERBIE 1036 Folic Acid 1 MG QSUN 08/28 0700 DCD PO Hydromorphone HCl 2 MG Q3P PRN 08/22 1415 DCD PO Hydromorphone HCl 4 MG Q3P PRN 08/22 1415 DCD PO Lactated Ringer's 1,000 ML Q10H 08/22 1415 DC 08/23 IV 0045 Lisinopril 10 MG DAILY 08/23 1000 DCD 08/23 PO 1036 Loratadine 10 MG DAILY 08/23 1000 DCD 08/23 PO 1034 Magnesium Hydroxide 30 ML Q8P PRN 08/22 1415 DCD PO Meclizine HCl 12.5 MG TID PRN 08/22 1400 DCD PO Multivitamins 1 TAB DAILY 08/23 1000 DCD 08/23 PO 1035 Omeprazole 40 MG BID 08/23 2200 DCD PO Omeprazole 40 MG DAILY AC 08/23 0700 DC 08/23 PO 0647 Ondansetron HCl 4 MG Q6P PRN 08/22 1400 DCD IV Patient Medication 1 ED ONE ONE 08/23 1415 DC Teaching ED 08/23 1416 Simethicone 40 MG 4 TIMES/DAY PRN 08/23 1100 DCD PO Trimethobenzamide HCl 200 MG Q6P PRN 08/22 1400 DCD IM Assessment/Plan Assessment/Plan Assessment: S/p ACDF/PCDF C45 with ICBG/Instr. Plan: D/C home D/C IV Continue Dilaudid prn pain/Tylenol Do's and Don'ts explained Disch. Instr. given No Methotrexate x 2 weeks Will F/U as outpatient Problem List: 1. Hypertension 2. Sinusitis 3. GERD (gastroesophageal reflux disease) 4. Rheumatoid arthritis 5. Rhinitis Core Measures Venous Thromboembolism VTE Risk Factors Age>40 No Mechanical VTE Prophylaxis d/t N/A MechProphylax Ordered No VTE Pharm Prophylaxis d/t Other (surgeon preference) Attending MD Review Statement Attending Statement Attending MD Statement: discuss w/resident/PA/TANK FARM ATTENDANT, agreed w/resident/PA/TANK FARM ATTENDANT
== END 2017-08-23 14:27 | DRG 473 ==
LOC: SDA 01:27 → ENRESERV 16:12 → ENTRNSPT 17:25 → EDTRNSPTSTS 17:35 → EDTRNSPT 17:35 → 2NA 17:41 → CMPTRNSPT 17:55 → ENPENDDIS 08-23 08:53 → ENTRNSPT 08-23 14:06 → 2NA 08-23 14:27 → EDTRNSPTSTS 08-23 14:42 → EDTRNSPT 08-23 14:42 → CMPTRNSPT 08-23 14:44
PROC: 0QB20ZZ Excision of Right Pelvic Bone, Open Approach (ICD-10-PCS; principal; 2017-08-22)
PROC: 0RG1071 Fusion of Cervical Vertebral Joint with Autologous Tissue Substitute, Posterior Approach, Posterior Column, Open Approach (ICD-10-PCS; principal; 2017-08-22)
DX: M81.8 Other osteoporosis without current pathological fracture (principal); M53.2X2 Spinal instabilities, cervical region; I10 Essential (primary) hypertension; Z98.1 Arthrodesis status; K21.9 Gastro-esophageal reflux disease without esophagitis; M06.9 Rheumatoid arthritis, unspecified; J30.9 Allergic rhinitis, unspecified
CPT/HCPCS: 2NAP; 72020; 97116-GO; 97161-GP; C9399; J0131; J2405; J3250; J3490; J7120